=== PATIENT | female | born 1990 | race Caucasian/White ===

== ENCOUNTER 2019-01-11 10:28 | Outpatient (CLI) | payer OTHER ==
[2019-01-11 11:17] LABS: ADD UMIC NO; UR ASCORBIC ACID NEGATIVE (NEGATIVE); UR BILIRUBIN (Dip) NEGATIVE (NEGATIVE); UR BLOOD (Dip) NEGATIVE (NEGATIVE); UR CLARITY CLEAR (CLEAR); UR COLOR YELLOW (YELLOW); UR GLUCOSE (Dip) 1+ mg/dL (NEGATIVE); UR KETONES (Dip) NEGATIVE (NEGATIVE); UR LEUKOCYTE ESTERASE (Dip) NEGATIVE Leu/ul (NEGATIVE); UR NITRITE (Dip) NEGATIVE (NEGATIVE); UR SPECIFIC GRAVITY (Dip) 1.013 (1.003-1.030); UR TOTAL PROTEIN (Dip) NEGATIVE (NEGATIVE); UR UROBILINOGEN (Dip) NEGATIVE (NEGATIVE)
[2019-01-11 12:09] LABS: ADD MAN DIFF? NO
[2019-01-11] MEDS: LACTATED RINGER'S 1,000 ML IV (12:09)
[2019-01-11 12:12] LABS: WHITE BLOOD COUNT 10.8 10^3/ul (4.8-10.8)
[2019-01-11 12:12] LABS: BASOPHIL # 0.1 10^3/ul (0.0-0.1); BASOPHILS % 0.5 % (0.0-2.0); EOSINOPHILS # 0.1 10^3/ul (0.0-0.5); EOSINOPHILS % 1.2 % (0.0-7.0); HEMATOCRIT 34.8 % (37.0-47.0); HEMOGLOBIN 11.3 g/dl (12.0-16.0); LYMPHOCYTES # 1.8 10^3/ul (0.8-2.9); LYMPHOCYTES % 16.6 % (15.0-51.0); MEAN CORPUSCULAR HEMOGLOBIN 24.5 pg (29.0-33.0); MEAN CORPUSCULAR HGB CONC 32.5 g/dl (32.0-37.0); MEAN CORPUSCULAR VOLUME 75.5 fl (82.0-101.0); MONOCYTE # 0.8 10^3/ul (0.3-0.9); MONOCYTES % 7.8 % (0.0-11.0); NEUTROPHIL # 7.9 10^3/ul (1.6-7.5); NEUTROPHILS % 73.2 % (39.0-77.0); PLATELET COUNT 167 10^3/UL (140-415); RED BLOOD COUNT 4.61 10^6/ul (4.20-5.40); RED CELL DISTRIBUTION WIDTH 15.2 % (11.5-14.5)
[2019-01-11 12:35] LABS: ALANINE AMINOTRANSFERASE 11 IU/L (13-69); ALBUMIN 3.7 g/dl (3.3-4.9); ALBUMIN/GLOBULIN RATIO 1.23; ALKALINE PHOSPHATASE 85 IU/L (42-121); ANION GAP 9 (5-13); ASPARTATE AMINO TRANSFERASE 21 IU/L (15-46); BILIRUBIN,INDIRECT 0.1 mg/dl (0-1.1); BILIRUBIN,TOTAL 0.1 mg/dl (0.2-1.3); BLOOD UREA NITROGEN 10 mg/dl (7-20); CALCIUM 9.8 mg/dl (8.4-10.2); CARBON DIOXIDE 23 mmol/L (21-31); CHLORIDE 106 mmol/L (97-110); CREATININE 0.34 mg/dl (0.44-1.00); Estimated GFR > 60 mL/min (>60); GLUCOSE 97 mg/dl (70-220); POTASSIUM 3.7 mmol/L (3.5-5.1); SODIUM 138 mmol/L (135-144); TOTAL PROTEIN 6.7 g/dl (6.1-8.1)
[2019-01-11] MEDS: TERBUTALINE 1 MG/ML INJ SC (14:14)
[2019-01-11] MEDS: BETAMET NA PHOS/AC(6 MG/ML) 2 ML INJ SYG IM (14:57)
== END 2019-01-11 16:30 | disposition home or self-care (01) ==
LOC: OBT 10:28 → L-D 10:28 → OBT 16:30
DX: O26.873 Cervical shortening, third trimester (principal); O62.9 Abnormality of forces of labor, unspecified; O24.419 Gestational diabetes mellitus in pregnancy, unspecified control; Z3A.33 33 weeks gestation of pregnancy
CPT/HCPCS: 36415; 76817; 76818; 80053; 81003; 82962; 85025; 87086; 96360; 96361; 96372

== ENCOUNTER 2019-01-12 14:57 | Outpatient (CLI) | payer OTHER ==
[2019-01-12] MEDS: BETAMET NA PHOS/AC(6 MG/ML) 2 ML INJ SYG IM (15:39)
== END 2019-01-12 17:12 | disposition home or self-care (01) ==
LOC: OBT 14:57 → L-D 14:57 → OBT 17:12
DX: O47.03 False labor before 37 completed weeks of gestation, third trimester (principal); O24.410 Gestational diabetes mellitus in pregnancy, diet controlled; Z3A.34 34 weeks gestation of pregnancy
CPT/HCPCS: J0702

== ENCOUNTER 2019-01-19 09:57 | Outpatient (CLI) | payer OTHER ==
[2019-01-19] MEDS: NIFEdipine 10 MG CAP PO (11:12)
[2019-01-19 11:39] LABS: ADD UMIC NO; UR ASCORBIC ACID NEGATIVE (NEGATIVE); UR BILIRUBIN (Dip) NEGATIVE (NEGATIVE); UR BLOOD (Dip) NEGATIVE (NEGATIVE); UR CLARITY SLIGHTLY CLOUDY (CLEAR); UR COLOR YELLOW (YELLOW); UR GLUCOSE (Dip) 1+ mg/dL (NEGATIVE); UR KETONES (Dip) NEGATIVE (NEGATIVE); UR LEUKOCYTE ESTERASE (Dip) NEGATIVE Leu/ul (NEGATIVE); UR NITRITE (Dip) NEGATIVE (NEGATIVE); UR RBC 1 /HPF (0-5); UR TOTAL PROTEIN (Dip) NEGATIVE (NEGATIVE); UR UROBILINOGEN (Dip) NEGATIVE (NEGATIVE); UR WBC 0 /HPF (0-5)
[2019-01-19] MEDS: ACETAMINOPHEN 500 MG TAB PO (13:08)
[2019-01-19] MEDS: TERBUTALINE 1 MG/ML INJ SC (14:37)
== END 2019-01-19 15:35 | disposition home or self-care (01) ==
LOC: OBT 09:57 → L-D 09:57 → OBT 15:35
DX: O62.9 Abnormality of forces of labor, unspecified (principal); Z3A.35 35 weeks gestation of pregnancy
CPT/HCPCS: 76818; 81001; 81003; 87086; 96372

== ENCOUNTER 2019-01-21 11:18 | Outpatient (CLI) | payer OTHER ==
[2019-01-21] MEDS: TERBUTALINE 1 MG/ML INJ SC (13:37)
[2019-01-21 14:24] LABS: ADD UMIC YES; UR ASCORBIC ACID NEGATIVE (NEGATIVE); UR BACTERIA FEW /HPF (NONE SEEN); UR BILIRUBIN (Dip) NEGATIVE (NEGATIVE); UR BLOOD (Dip) NEGATIVE (NEGATIVE); UR CLARITY SLIGHTLY CLOUDY (CLEAR); UR COLOR YELLOW (YELLOW); UR GLUCOSE (Dip) 1+ mg/dL (NEGATIVE); UR KETONES (Dip) NEGATIVE (NEGATIVE); UR LEUKOCYTE ESTERASE (Dip) 2+ Leu/ul (NEGATIVE); UR NITRITE (Dip) NEGATIVE (NEGATIVE); UR RBC 2 /HPF (0-5); UR SQUAMOUS EPITHELIAL CELL FEW /HPF (FEW); UR TOTAL PROTEIN (Dip) NEGATIVE (NEGATIVE); UR UROBILINOGEN (Dip) NEGATIVE (NEGATIVE); UR WBC 10 /HPF (0-5)
[2019-01-21 14:30] LABS: ADD MAN DIFF? NO
[2019-01-21 14:31] LABS: WHITE BLOOD COUNT 11.8 10^3/ul (4.8-10.8)
[2019-01-21 14:31] LABS: BASOPHIL # 0.1 10^3/ul (0.0-0.1); BASOPHILS % 0.4 % (0.0-2.0); EOSINOPHILS # 0.1 10^3/ul (0.0-0.5); EOSINOPHILS % 0.4 % (0.0-7.0); HEMATOCRIT 37.9 % (37.0-47.0); HEMOGLOBIN 12.1 g/dl (12.0-16.0); LYMPHOCYTES # 3.2 10^3/ul (0.8-2.9); LYMPHOCYTES % 26.7 % (15.0-51.0); MEAN CORPUSCULAR HEMOGLOBIN 24.6 pg (29.0-33.0); MEAN CORPUSCULAR HGB CONC 31.9 g/dl (32.0-37.0); MEAN CORPUSCULAR VOLUME 77.2 fl (82.0-101.0); MEAN PLATELET VOLUME 12.8 fl (7.4-10.4); MONOCYTE # 0.7 10^3/ul (0.3-0.9); MONOCYTES % 6.3 % (0.0-11.0); NEUTROPHIL # 7.8 10^3/ul (1.6-7.5); NEUTROPHILS % 65.9 % (39.0-77.0); PLATELET COUNT 137 10^3/UL (140-415); RED BLOOD COUNT 4.91 10^6/ul (4.20-5.40); RED CELL DISTRIBUTION WIDTH 15.2 % (11.5-14.5)
== END 2019-01-21 15:55 | disposition home or self-care (01) ==
LOC: OBT 11:18 → L-D 11:18 → OBT 15:55
DX: O62.9 Abnormality of forces of labor, unspecified (principal); Z3A.35 35 weeks gestation of pregnancy
CPT/HCPCS: 76818; 81001; 85025; 87086

== ENCOUNTER 2019-01-26 11:27 | Outpatient (CLI) | payer OTHER | END 2019-01-26 14:00 | disposition home or self-care (01) | LOC: OBT 11:27 → L-D 11:27 → OBT 14:00 | DX: O36.8330 Maternal care for abnormalities of the fetal heart rate or rhythm, third trimester, not applicable or unspecified (principal); O24.419 Gestational diabetes mellitus in pregnancy, unspecified control; Z3A.36 36 weeks gestation of pregnancy | CPT/HCPCS: 76815; 76818 ==

== ENCOUNTER 2019-02-02 11:31 | Outpatient (CLI) | payer OTHER | END 2019-02-02 14:12 | disposition home or self-care (01) | LOC: OBT 11:31 → L-D 11:31 → OBT 14:12 | DX: O24.419 Gestational diabetes mellitus in pregnancy, unspecified control (principal); Z3A.37 37 weeks gestation of pregnancy | CPT/HCPCS: 76818; 82962 ==

== ENCOUNTER 2019-02-16 10:13 | Outpatient (CLI) | payer OTHER | END 2019-02-16 12:07 | disposition home or self-care (01) | LOC: OBT 10:13 → L-D 10:13 → OBT 12:07 | DX: O24.419 Gestational diabetes mellitus in pregnancy, unspecified control (principal); Z3A.39 39 weeks gestation of pregnancy | CPT/HCPCS: 76815; 76818; 82962 ==

== ENCOUNTER 2019-02-18 09:21 | Inpatient (IN) | payer OTHER ==
[2019-02-18] MEDS ORDERED: OXYTOCIN 30 UNITS/LR 500 ML IV ×2 (10:00)
[2019-02-18] MEDS ORDERED: CARBOPROST 250 MCG INJ IM (10:00)
[2019-02-18] MEDS ORDERED: MISOPROSTOL 200 MCG TAB PR (10:00)
[2019-02-18] MEDS ORDERED: LIDOCAINE 1% (MPF) 30 ML INJ INJ (10:00)
[2019-02-18] MEDS ORDERED: BUTORPHANOL 2 MG INJ IV (10:00)
[2019-02-18 10:02] LABS: ADD MAN DIFF? NO
[2019-02-18 10:04] LABS: WHITE BLOOD COUNT 8.7 10^3/ul (4.8-10.8)
[2019-02-18 10:04] LABS: ABNORMAL IP MESSAGE 1; BASOPHILS % 0.3 % (0.0-2.0); EOSINOPHILS % 0.3 % (0.0-7.0); HEMATOCRIT 36.2 % (37.0-47.0); HEMOGLOBIN 11.7 g/dl (12.0-16.0); LYMPHOCYTES # 1.6 10^3/ul (0.8-2.9); LYMPHOCYTES % 18.1 % (15.0-51.0); MEAN CORPUSCULAR HEMOGLOBIN 24.7 pg (29.0-33.0); MEAN CORPUSCULAR HGB CONC 32.3 g/dl (32.0-37.0); MEAN CORPUSCULAR VOLUME 76.4 fl (82.0-101.0); MONOCYTE # 0.7 10^3/ul (0.3-0.9); MONOCYTES % 8.2 % (0.0-11.0); NEUTROPHIL # 6.3 10^3/ul (1.6-7.5); NEUTROPHILS % 72.3 % (39.0-77.0); PLATELET COUNT 100 10^3/UL (140-415); RED BLOOD COUNT 4.74 10^6/ul (4.20-5.40); RED CELL DISTRIBUTION WIDTH 15.5 % (11.5-14.5)
[2019-02-18] MEDS: LACTATED RINGER'S 1,000 ML IV ×2 (10:08→17:24)
[2019-02-18 10:09] LABS: POSITIVE DIFF @See below
[2019-02-18 10:23] LABS: INR 0.81; PROTIME 11.3 Sec (11.9-14.9); PT RATIO 0.9
[2019-02-18 10:24] LABS: PARTIAL THROMBOPLASTIN TIME 28.7 Sec (23.0-35.0)
[2019-02-18 11:08] LABS: HEPATITIS B SURFACE ANTIGEN NEGATIVE (NEGATIVE)
[2019-02-18] MEDS: MISOPROSTOL 50 MCG CAPSULE PO ×2 (11:47→17:00)
[2019-02-18] MEDS: AMPICILLIN 2 GM/NS (PMX) 100 ML IV (11:47)
[2019-02-18] MEDS ORDERED: MISOPROSTOL 50 MCG CAPSULE PO (13:00)
[2019-02-18 13:54] LABS: GLUCOSE 111 mg/dl (70-220)
[2019-02-18] MEDS: AMPICILLIN 1 GM/NS (PMX) 50 ML IV ×2 (15:52→20:16)
[2019-02-18 16:22] LABS: RAPID PLASMA REAGIN NONREACTIVE (NR)
[2019-02-18] MEDS ORDERED: FENTAnyl 2MCG/ML-ROPIV 0.2% 100 ML (17:38)
[2019-02-18] MEDS ORDERED: DIPHENHYDRAMINE 50 MG INJ IV (18:00)
[2019-02-18] MEDS ORDERED: NALOXONE (0.4 MG/ML) INJ IV (18:00)
[2019-02-18] MEDS: FENTAnyl 2MCG/ML-ROPIV 0.2% 100 ML BAG EPI ×2 (20:19→22:26)
[2019-02-18] MEDS: DEXTROSE 5%-LR 1,000 ML IV (20:32)
[2019-02-19] MEDS: AMPICILLIN 1 GM/NS (PMX) 50 ML IV ×4 (00:25→12:14)
[2019-02-19] MEDS ORDERED: MINERAL OIL LIGHT 10 ML VIAL TOP (02:30)
[2019-02-19] MEDS: OXYTOCIN 30 UNITS/LR 500 ML IV ×2 (03:20→14:11)
[2019-02-19] MEDS: FENTAnyl 2MCG/ML-ROPIV 0.2% 100 ML BAG EPI ×2 (03:33→08:50)
[2019-02-19] MEDS: ONDANSETRON 4 MG INJ IV (07:28)
[2019-02-19] MEDS: METHYLERGONOVINE 0.2 MG INJ IM (13:47)
[2019-02-19] MEDS: IBUPROFEN 600 MG TAB PO ×2 (14:10→16:03)
[2019-02-19] MEDS: LABETALOL 100 MG TAB PO ×2 (16:03→20:39)
[2019-02-19] MEDS: IBUPROFEN 800 MG TAB PO ×2 (18:00→23:53)
[2019-02-19] MEDS ORDERED: DIBUCAINE 1% 30 GM OINT TOP (18:00)
[2019-02-19] MEDS ORDERED: DIPHENHYDRAMINE 25 MG CAP PO (18:00)
[2019-02-19] MEDS ORDERED: MISOPROSTOL 200 MCG TAB PR (18:00)
[2019-02-19] MEDS ORDERED: ONDANSETRON 4 MG INJ IV (18:00)
[2019-02-19] MEDS ORDERED: DIPHENHYDRAMINE 50 MG INJ IV (18:00)
[2019-02-19] MEDS ORDERED: BENZOCAINE 20% 56 ML SPRAY TOP (18:00)
[2019-02-19] MEDS ORDERED: CARBOPROST 250 MCG INJ IM (18:00)
[2019-02-19] MEDS ORDERED: ONDANSETRON 4 MG TAB PO (18:00)
[2019-02-19] MEDS ORDERED: ACETAMINOPHEN 325 MG TAB PO ×2 (18:00)
[2019-02-19] MEDS ORDERED: METHYLERGONOVINE 0.2 MG INJ IM (18:00)
[2019-02-19] MEDS ORDERED: OXYTOCIN 30 UNITS/LR 500 ML IV (18:00)
[2019-02-19] MEDS: LACTATED RINGER'S 1,000 ML IV* (20:38)
[2019-02-19] MEDS: LANOLIN HPA 1 PKT TOP (20:39)
[2019-02-19] MEDS: SENNA/DOCUSATE NA (8.6MG/50MG) TAB PO (20:40)
[2019-02-20 04:11] LABS: ADD UMIC YES; UR ASCORBIC ACID NEGATIVE (NEGATIVE); UR BILIRUBIN (Dip) NEGATIVE (NEGATIVE); UR BLOOD (Dip) 3+ mg/dL (NEGATIVE); UR CLARITY CLEAR (CLEAR); UR COLOR YELLOW (YELLOW); UR GLUCOSE (Dip) NEGATIVE (NEGATIVE); UR KETONES (Dip) NEGATIVE (NEGATIVE); UR LEUKOCYTE ESTERASE (Dip) 2+ Leu/ul (NEGATIVE); UR NITRITE (Dip) NEGATIVE (NEGATIVE); UR RBC > 182 /HPF (0-5); UR SQUAMOUS EPITHELIAL CELL FEW /HPF (FEW); UR TOTAL PROTEIN (Dip) NEGATIVE (NEGATIVE); UR UROBILINOGEN (Dip) NEGATIVE (NEGATIVE); UR WBC 57 /HPF (0-5)
[2019-02-20] MEDS: LACTATED RINGER'S 1,000 ML IV* (04:15)
[2019-02-20] MEDS: IBUPROFEN 800 MG TAB PO ×3 (05:32→18:28)
[2019-02-20 08:18] LABS: ADD MAN DIFF? NO
[2019-02-20 08:22] LABS: ABNORMAL IP MESSAGE 1; BASOPHILS % 0.3 % (0.0-2.0); EOSINOPHILS % 0.2 % (0.0-7.0); HEMATOCRIT 29.6 % (37.0-47.0); HEMOGLOBIN 9.6 g/dl (12.0-16.0); LYMPHOCYTES # 2.6 10^3/ul (0.8-2.9); LYMPHOCYTES % 19.4 % (15.0-51.0); MEAN CORPUSCULAR HEMOGLOBIN 24.8 pg (29.0-33.0); MEAN CORPUSCULAR HGB CONC 32.4 g/dl (32.0-37.0); MEAN CORPUSCULAR VOLUME 76.5 fl (82.0-101.0); MEAN PLATELET VOLUME 13.8 fl (7.4-10.4); MONOCYTE # 1.1 10^3/ul (0.3-0.9); MONOCYTES % 8.6 % (0.0-11.0); NEUTROPHIL # 9.4 10^3/ul (1.6-7.5); PLATELET COUNT 105 10^3/UL (140-415); RED BLOOD COUNT 3.87 10^6/ul (4.20-5.40)
[2019-02-20 08:22] LABS: WHITE BLOOD COUNT 13.2 10^3/ul (4.8-10.8)
[2019-02-20 08:23] LABS: POSITIVE DIFF @See below
[2019-02-20 08:48] LABS: INR 0.92; PROTIME 12.5 Sec (11.9-14.9)
[2019-02-20 08:49] LABS: PARTIAL THROMBOPLASTIN TIME 34.2 Sec (23.0-35.0)
[2019-02-20 08:56] LABS: ALANINE AMINOTRANSFERASE 24 IU/L (13-69); ALBUMIN 2.5 g/dl (3.3-4.9); ALBUMIN/GLOBULIN RATIO 0.92; ALKALINE PHOSPHATASE 96 IU/L (42-121); ANION GAP 4 (5-13); ASPARTATE AMINO TRANSFERASE 33 IU/L (15-46); BILIRUBIN,INDIRECT 0.3 mg/dl (0-1.1); BILIRUBIN,TOTAL 0.3 mg/dl (0.2-1.3); BLOOD UREA NITROGEN 8 mg/dl (7-20); CALCIUM 8.8 mg/dl (8.4-10.2); CARBON DIOXIDE 26 mmol/L (21-31); CHLORIDE 107 mmol/L (97-110); CREATININE 0.48 mg/dl (0.44-1.00); Estimated GFR > 60 mL/min (>60); GLUCOSE 82 mg/dl (70-220); POTASSIUM 3.6 mmol/L (3.5-5.1); SODIUM 137 mmol/L (135-144); TOTAL PROTEIN 5.2 g/dl (6.1-8.1); URIC ACID 5.5 mg/dl (3.1-7.9)
[2019-02-20] MEDS: LABETALOL 100 MG TAB PO ×2 (09:43→21:04)
[2019-02-20] MEDS: SENNA/DOCUSATE NA (8.6MG/50MG) TAB PO (09:44)
[2019-02-20] MEDS: MAGNESIUM HYDROXIDE 30ML CUP PO (09:44)
[2019-02-20] MEDS: HYDROCODONE/APAP (5/325) TAB PO ×2 (09:44→22:23)
[2019-02-21] MEDS: IBUPROFEN 800 MG TAB PO ×3 (00:10→12:41)
[2019-02-21] MEDS: VARICELLA VACCINE LIVE/PF 1,350 UNIT/0.5 ML ML SC* (09:00)
[2019-02-21] MEDS: DIPHTH/TET/ACEL PERTUSS (ADULT) 0.5 ML VIAL IM* (09:00)
[2019-02-21] MEDS: HYDROCODONE/APAP (5/325) TAB PO (10:09)
[2019-02-21] MEDS: LABETALOL 100 MG TAB PO (10:09)
[2019-02-21] MEDS: LANOLIN HPA 1 PKT TOP (13:29)
[2019-02-21] MEDS: MEASLES,MUMPS,RUBELLA VACCINE INJ SC* (13:30)
== END 2019-02-21 15:55 | disposition home or self-care (01) | DRG 807 ==
LOC: L-D 09:21 → PP1 02-19 16:44
PROVIDERS: Obstetrics & Gynecology
PROC: 10D07Z6 Extraction of Products of Conception, Vacuum, Via Natural or Artificial Opening (ICD-10-PCS; principal; 2019-02-19)
PROC: 0W8NXZZ Division of Female Perineum, External Approach (ICD-10-PCS; 2019-02-19)
DX: O24.420 Gestational diabetes mellitus in childbirth, diet controlled (principal); Z37.0 Single live birth; O99.824 Streptococcus B carrier state complicating childbirth; Z3A.39 39 weeks gestation of pregnancy; Z23 Encounter for immunization
CPT/HCPCS: 62322; 76815; 80053; 81001; 82947; 82962; 84560; 85025; 85384; 85610; 85730; 86592; 86850; 86900; 86901; 87340; 90716; 99464